=== PATIENT | female | born 1995 | race Caucasian/White ===

== ENCOUNTER 2018-07-03 10:54 | Emergency (ER) | payer OTHER ==
[2018-07-03] MEDS ORDERED: IPRATROPIUM/ALBUTEROL (0.5MG/3MG) NEB INH ONE (11:10)
[2018-07-03] MEDS ORDERED: 0.9 % SODIUM CHLORIDE 1,000 ML BAG IV ONE (11:11)
[2018-07-03] MEDS ORDERED: ACETAMINOPHEN 325 MG TAB PO ONE (11:12)
[2018-07-03] MEDS ORDERED: IBUPROFEN 600 MG TABLET PO ONE (11:17)
--- NOTE | 2018-07-03 11:21 | Emergency Department Record ---
History of Present Illness - General Chief Complaint: Shortness of breath Stated Complaint: MITZY,BREATHING CHEST PAIN,COUGH Time Seen by Provider: 07/03/18 11:07 Source: Patient Mode of Arrival: Ambulatory Limitations: No limitations - History of Present Illness Initial Comments: The patient is here due to a 4-5 day hx of cough, congestion, and SOB. There has been intermittent sputum production and CP with the cough only. The patient has had a fever with this today and a fast HR. MD Complaint: Cough, Shortness of breath Onset/Timin -: Days(s) - Related Data Previous Rx's Medication Instructions Recorded Albuterol Sulfate [Proair Hfa] 2 puff IH QID PRN #1 inhaler 07/03/18 Azithromycin [Zithromax] 250 mg PO ASDIR #6 tab 07/03/18 Benzonatate [Tessalon] 1 cap PO Q8H PRN #20 cap 07/03/18 Prednisone [Prednisone 20Mg] 40 mg PO DAILY #8 tab 07/03/18 Allergies Allergy/AdvReac Type Severity Reaction Status Date / Time Penicillins Allergy Unverified 06/16/18 13:01 Travel Screening - Travel/Exposure Within Last 30 Days Have you traveled within the last 30 days?: No - Travel/Exposure Within Last Year Have you traveled outside the [place] in the last year?: No - Additonal Travel Details Have you been exposed to anyone with a communicable illness?: No - Travel Symptoms Symptom Screening: Fever (GT 100.4) Review of Systems Constitutional: Reports: Fever, Malaise. Denies: Chills Eyes: Denies: Eye discharge ENT: Reports: Congestion Respiratory: Reports: Cough, Dyspnea Cardiovascular: Denies: Arrhythmia Past Medical History - SOCIAL HISTORY Smoking Status: Never smoker Alcohol Use: None Drug Use: None - RESPIRATORY Hx Respiratory Disorders: No - CARDIOVASCULAR Hx Cardio Disorders: No - NEURO Hx Neuro Disorders: No - GI Hx GI Disorders: No - Hx Genitourinary Disorders: No - ENDOCRINE Hx Endocrine Disorders: No - MUSCULOSKELETAL Hx Musculoskeletal Disorders: No - PSYCH Hx Psych Problems: No - HEMATOLOGY/ONCOLOGY Hx Hematology/Oncology Disorders: No Family Medical History Any Significant Family History?: No Physical Exam - General General Appearance: Alert, Oriented x3, Cooperative, No acute distress - Head Head exam: Atraumatic, Normocephalic, Normal inspection - Eye Eye exam: Normal appearance, PERRL, EOMI - ENT Throat exam: Normal inspection. negative: Tonsillar erythema, Tonsillar exudate - Neck Neck exam: Normal inspection, Full ROM. negative: Tenderness - Respiratory Respiratory exam: Wheezes (bilaterally.). negative: Normal lung sounds bilaterally, Respiratory distress - Cardiovascular Cardiovascular Exam: Regular rate, Normal rhythm, Tachycardia - GI/Abdominal GI/Abdominal exam: Soft, Normal bowel sounds. negative: Tenderness - Extremities Extremities exam: Normal inspection, Full ROM, Normal capillary refill. negative: Tenderness Course Vital Signs 07/03/18 11:06 Temperature 102.2 F H Pulse Rate 148 H Respiratory 18 Rate Blood Pressure 129/77 Pulse Ox 93 L - Reevaluation(s) Reevaluation #1: The patient is doing better at this time. Her lung aeration was improved and her wheezing resolved after the breathing tx. 07/03/18 11:57 Reevaluation #2: The patient is doing a lot better at this time. Her temp has resolved and her HR is now back to normal. The cough and wheezing are much improved. I did discuss the lab and xray findings with the patient and the need for F/U and repeat xray in 4 week to assure clearing. 07/03/18 12:56 Medical Decision Making - Data Complexity MDM Data: Labs Ordered and/or Reviewed, X-Ray Ordered and/or Reviewed - Lab Data Result diagrams: 07/03/18 11:25 07/03/18 11:25 - Radiology Data Radiology results: Report reviewed (CXR: Subtle infiltrate DAGOBERTO.) Disposition Disposition: Discharge Clinical Impression: Asthmatic bronchitis Qualifiers: Asthma severity: moderate Asthma complication type: uncomplicated Disposition: Home, Self-Care Condition: (2) Stable Instructions: Dyspnea (ED) Additional Instructions: Please take the medicines as directed. Please see your family doctor on Thursday if not better and return to the ER for any worsening symptoms, high fever, or worsening trouble breathing. Prescriptions: Albuterol Sulfate [Proair Hfa] 2 puff IH QID PRN #1 inhaler PRN Reason: Cough And Difficulty Breathing Azithromycin [Zithromax] 250 mg PO ASDIR #6 tab Benzonatate [Tessalon] 1 cap PO Q8H PRN #20 cap PRN Reason: Cough Prednisone [Prednisone 20Mg] 40 mg PO DAILY #8 tab Forms: Patient Portal Access Time of Disposition: 12:43 Quality - Quality Measures Quality Measures: N/A - Blood Pressure Screening View Details: Yes Does Patient Have Any of the Following: No Blood Pressure Classification: Pre-Hypertensive BP Reading Systolic Measurement: 129 Diastolic Measurement: 77 Screening for High Blood Pressure: < Pre-Hypertensive BP, F/U Documented > [ G8950] Pre-Hypertensive Follow-up Interventions: Referral to alternative/primary care provider.
[2018-07-03] MEDS ORDERED: METHYLPREDNISOLONE PF 125MG/VIAL IVP ONE (11:26)
[2018-07-03 11:34] LABS: BASO % 0.2 % (0-6); EOS % 0.4 % (0-6); GRAN % 73.8 % (47-80); HEMATOCRIT 42.6 % (35.0-47.0); HEMOGLOBIN 14.1 gm/dl (11.6-16.0); LYMPH % 17.6 % (16-45); MEAN CELL VOLUME 88.4 fl (81-97); MEAN CORPUSCULAR HEMOGLOBIN 29.3 pg (27-33); MEAN CORPUSCULAR HGB CONC 33.1 g/dl (32-36); PLATELET COUNT 285 K/uL (130-400); RED BLOOD COUNT 4.82 M/uL (3.80-5.40); RED CELL DISTRIBUTION WIDTH 13.4 % (11.5-14.5); WHITE BLOOD COUNT W/O DIFF 10.6 K/uL (4.2-12.2)
[2018-07-03 11:45] LABS: BLOOD UREA NITROGEN 9 mg/dL (6-20); CREATININE 0.9 mg/dL (0.5-0.9); EST GLOMERULAR FILTRATION RATE > 60 mL/min
[2018-07-03 11:46] LABS: TOTAL PROTEIN 7.5 g/dL (6.6-8.7)
[2018-07-03 11:48] LABS: GLUCOSE,RANDOM 132 mg/dL (74-109)
[2018-07-03 11:50] LABS: ALT/SGPT 16 U/L (<33)
[2018-07-03 11:51] LABS: ALB/GLOB RATIO 1.3 (1.1-1.8); ALBUMIN 4.2 g/dL (4.0-5.0); ALKALINE PHOSPHATASE 49 U/L (35-104); AST/SGOT 15 U/L (10.0-35.0)
--- NOTE | 2018-07-05 12:19 | RADIOLOGY REPORT ---
EXAM: CHEST, TWO VIEWS HISTORY: COUGH, SHORTNESS OF BREATH, FEVER. TECHNIQUE: PA and lateral views of the chest were obtained. Comparison: None. FINDINGS: The heart size is normal. The right lung appears clear, however, there is some patchy density in the left mid to upper lung including the left suprahilar region as well as further laterally in the left mid to upper lung likely representing some mild patchy pneumonitis. Follow-up films are suggested to demonstrate clearing. No pleural effusion or pneumothorax evident. IMPRESSION: SOME PATCHY DENSITY IN THE LEFT MID TO UPPER LUNG PRESUMABLY REPRESENTING PNEUMONITIS. FOLLOW-UP FILMS SUGGESTED TO DEMONSTRATE CLEARING. JOB NUMBER: [id number] MTDD
== END 2018-07-03 12:49 | disposition home or self-care (01) ==
LOC: ER 10:54
DX: J45.40 Moderate persistent asthma, uncomplicated (principal); R06.02 Shortness of breath
CPT/HCPCS: 71046; 80053; 84145; 85025; 94640; 96374; 99284; J2930; J7030

== ENCOUNTER 2019-04-06 22:43 | Emergency (ER) | payer OTHER ==
[2019-04-06] MEDS: PROPARACAINE HCL OPTH 15ML BTL OPTH ONE (22:58)
--- NOTE | 2019-04-06 22:58 | Emergency Department Record ---
History of Present Illness - General Chief complaint: ENT Stated complaint: EYE INFECTION Time Seen by Provider: 04/06/19 22:52 Source: Patient Mode of Arrival: Ambulatory Limitations: No limitations - History of Present Illness Initial comments: 23 yo female presents to ED for evaluation of watering to the eyes bilaterally, initially started in the right eye, has progressed onto the left eye. Patient denies injury or trauma, does report that she pulled a cat hair from the eye yesterday. Patient denies purulent drainage from the eyes, denies redness to the sclera, denies change in vision, and denies rashes. Patient denies health problems at her baseline. Onset/Timin -: Days(s) Severity: Moderate Consistency: Constant Improves with: None Worsens with: None - Related Data Allergies Allergy/AdvReac Type Severity Reaction Status Date / Time Penicillins Allergy RASH Verified 04/06/19 22:54 Review of Systems Constitutional: Denies: Chills, Fever, Malaise, Night sweats Eyes: Reports: Eye discharge. Denies: Eye pain, Photophobia, Vision change ENT: Denies: Congestion, Ear pain, Epistaxis Respiratory: Denies: Cough, Dyspnea Cardiovascular: Denies: Chest pain, Dyspnea on exertion Endocrine: Denies: Fatigue, Heat or cold intolerance Gastrointestinal: Denies: Abdominal pain, Nausea, Vomiting Genitourinary: Denies: Incontinence, Retention Musculoskeletal: Denies: Arthralgia, Back pain Skin: Denies: Bruising, Change in color Neurological: Denies: Abnormal gait, Confusion, Headache, Seizure Psychiatric: Denies: Anxiety Hematological/Lymphatic: Denies: Anemia, Blood Clots Past Medical History - SOCIAL HISTORY Smoking Status: Never smoker Drug Use: None - RESPIRATORY Hx Respiratory Disorders: No - CARDIOVASCULAR Hx Cardio Disorders: No - NEURO Hx Neuro Disorders: No - GI Hx GI Disorders: No - Hx Genitourinary Disorders: No - ENDOCRINE Hx Endocrine Disorders: No - MUSCULOSKELETAL Hx Musculoskeletal Disorders: No - PSYCH Hx Psych Problems: No - HEMATOLOGY/ONCOLOGY Hx Hematology/Oncology Disorders: No Physical Exam - General General Appearance: Alert, Oriented x3, Cooperative, No acute distress Limitations: No limitations - Head Head exam: Atraumatic, Normocephalic, Normal inspection Head exam detail: negative: Abrasion, Contusion, Peralta's sign, General tenderness, Hematoma, Laceration - Eye Eye exam: Normal appearance, Other (No flourescein uptake on examination, no corneal abrasions present, negative Daniel's sign.). negative: Conjunctival injection, Periorbital swelling, Periorbital tenderness, Scleral icterus - ENT Ear exam: negative: Auricular hematoma, Auricular trauma Nasal Exam: negative: Active bleeding, Discharge, Dried blood, Foreign body Mouth exam: negative: Drooling, Laceration, Muffled voice, Tongue elevation - Neck Neck exam: Normal inspection. negative: Meningismus, Tenderness - Respiratory Respiratory exam: Normal lung sounds bilaterally. negative: Rales, Respiratory distress, Rhonchi, Stridor - Cardiovascular Cardiovascular Exam: Regular rate, Normal rhythm, Normal heart sounds - GI/Abdominal GI/Abdominal exam: Soft. negative: Rebound, Rigid, Tenderness - Rectal Rectal exam: Deferred - exam: Deferred - Extremities Extremities exam: Normal inspection. negative: Pedal edema, Tenderness - Back Back exam: Denies: CVA tenderness (R), CVA tenderness (L) - Neurological Neurological exam: Alert, Normal gait, Oriented X3 - Psychiatric Psychiatric exam: Normal affect, Normal mood - Skin Skin exam: Normal color. negative: Abrasion Type of lesion: negative: abrasion Course Vital Signs 04/06/19 22:47 Temperature 98.5 F Pulse Rate [ 70 Pulse Ox Probe] Respiratory 20 Rate Blood Pressure 127/79 [Left Arm] Pulse Ox 99 - Reevaluation(s) Reevaluation #1: 04/06/19 23:17 Patient's corneas were stained with flourescein, no update noted, no abrasions, no dendritic ulcerations, and negative Daniel's sign. No FBs identified on examination. Symptoms appear c/w possible allergic vs. irritant conjunctivitis. Patient was instructed to continue Zyrtec as she initiated several days ago. Patient appears stable for discharge at this time. Disposition Disposition: Discharge Clinical Impression: Allergic conjunctivitis Qualifiers: Laterality: bilateral Qualified Code(s): H10.13 - Acute atopic conjunctivitis, bilateral Disposition: Home, Self-Care Condition: (2) Stable Instructions: Conjunctivitis (ED) Additional Instructions: Return to ED if your symptoms worsen or if you have any concerns.. Follow-up with your family doctor in 3-5 days as directed. Forms: Patient Portal Access Time of Disposition: 23:19 Quality - Quality Measures Quality Measures: N/A - Blood Pressure Screening Does Patient Have Any of the Following: No Blood Pressure Classification: Pre-Hypertensive BP Reading Systolic Measurement: 127 Diastolic Measurement: 79 Screening for High Blood Pressure: < Pre-Hypertensive BP, F/U Documented > [G8950] Pre-Hypertensive Follow-up Interventions: Referral to alternative/primary care provider.
== END 2019-04-06 23:19 | disposition home or self-care (01) ==
LOC: ER 22:43
DX: H10.13 Acute atopic conjunctivitis, bilateral (principal)
CPT/HCPCS: 99283